=== PATIENT | male | born 1990 | race Caucasian/White ===

== ENCOUNTER 2018-01-09 11:00 | Emergency (ER) | payer BC ==
[~2018-01-09] VITALS: Ht 177.8 cm; Wt 82.6 kg
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
[2018-01-09 11:31] LABS: BASOPHILS # (AUTO) 0.1 /CMM (0.0-0.2); EOSINOPHILS % (AUTO) 0.5 % (0.0-6.0); HEMATOCRIT 50 % (39-51); HEMOGLOBIN 16.3 g/dL (13.5-17.5); LYMPHOCYTES # (AUTO) 2.2 /CMM (0.8-4.8); MEAN CORPUSCULAR HEMOGLOBIN 30 PG (26.0-33.0); MEAN CORPUSCULAR HGB CONC 32 g/dl (31.0-36.0); MEAN CORPUSCULAR VOLUME 92 fL (80-96); MONOCYTES # (AUTO) 0.4 /CMM (0.1-1.30); MONOCYTES % (AUTO) 6.8 % (2.0-12.0); NEUTROPHILS # (AUTO) 3.2 /CMM (1.8-8.9); NEUTROPHILS % (AUTO) 53.7 % (43.0-81.0); PLATELET COUNT (AUTO) 336 /CMM (150-450); RDW COEFFICIENT OF VARIATION 12.4 (11.5-15.0); RED BLOOD CELL COUNT(AUTO) 5.47 MIL/uL (4.5-6.0); WHITE BLOOD COUNT (AUTO) 5.9 K/uL (4.3-11.0)
--- NOTE | 2018-01-09 11:37 | NUR ---
LABS DRAWN & URINE COLLECTED & SENT TO LAB.
[2018-01-09 11:42] LABS: CALCIUM, SERUM 9.2 mg/dL (8.5-10.1); CARBON DIOXIDE 23 mmol/L (21-32); CHLORIDE 105 mmol/L (98-107); GLUCOSE 95 mg/dL (74-106); POTASSIUM 4.2 mmol/L (3.5-5.1); SODIUM SERUM 139 mmol/L (136-145); UREA NITROGEN, BLOOD 9 mg/dL (7-18)
[2018-01-09 11:47] LABS: ACETAMINOPHEN 0 ug/ml (10-30); ALANINE AMINOTRANSFERASE 42 U/L (12-78); ALBUMIN 3.9 g/dL (3.4-5.0); ALCOHOL, BLOOD < 3 mg/dL (0-0); ALKALINE PHOSPHATASE 90 U/L (46-116); ASPARTATE AMINOTRANSFERASE 26 U/L (15-37); BILIRUBIN,DIRECT 0.1 mg/dL (0.0-0.2); BILIRUBIN,TOTAL 0.3 mg/dL (0.2-1.0); SALICYLATE 1.5 mg/dL (2.8-20.0); TOTAL PROTEIN, SERUM 7.2 g/dL (6.4-8.2)
[2018-01-09 11:53] LABS: APPEARANCE,URINE Clear (CLEAR); BILIRUBIN,URINE Negative (NEGATIVE); BLOOD, URINE Moderate Ery/uL (NEGATIVE); COLOR,URINE Yellow (YELLOW); KETONES,URINE Negative (NEGATIVE); LEUKOCYTE ESTERASE ,URINE Negative (NEGATIVE); NITRITE, URINE Negative (NEGATIVE); PROTEIN,URINE 100 mg/dl (NEGATIVE); UGLUCOSE Negative (NEGATIVE); UROBILINOGEN,URINE 0.2 EU/dL (0.2)
[2018-01-09 11:56] LABS: BACTERIA,URINE Few /HPF (None Seen); SQUAMOUS EPITHELIAL CELL,UR Rare /HPF (None Seen)
[2018-01-09] MEDS ORDERED: LORAZEPAM INJ 2 MG/ML VIAL ONE (13:49)
[2018-01-09] MEDS: LORAZEPAM INJ 2 MG/ML VIAL IM ONE (13:54)
--- NOTE | 2018-01-09 13:55 | NUR ---
PT CONFUSED, LAUGHING. MEDICATED PER MD ORDER.
[2018-01-09 13:56] VITALS: BP 128/80
--- NOTE | 2018-01-09 15:14 | NUR ---
PT IS ACCEPTED AT [facility] PSYCH 2. 8106 BED-1. NUMBER FOR REPORT IS [id number]. PLEASE WAIT 30-45 MINUTES TO CALL AND ASK FOR MACHINE VENEER REPAIRERJACKIE MAY. ACCEPTING MD DR CAMACHO. FOR AMBULANCE: [facility] [address] [address] GO THROUGH ADMITTING ENTRANCE BY FRONT OF HOSPITAL AND WILL BE DIRECTED TO PSYCH 2.
--- NOTE | 2018-01-09 15:24 | NUR ---
CALLED [facility] FOR BLS TRANSFER TRIP#[id number] [phone] [phone]
--- NOTE | 2018-01-09 15:45 | NUR ---
CALLED [facility], SPOKE TO LALO, NUCLEAR CARDIOLOGY TECHNOLOGIST & STS THAT THE RN THAT ASSIGNED TO PT IS NOT AVAILABLE & CALL AFTER 15 MINS.
--- NOTE | 2018-01-09 16:30 | NUR ---
CALLED [facility] PSYCH UNIT TO GIVE REPORT TO J CARLOS MAY RN. SPOKE TO JACKIE MAY & STS THAT THE RN IS BUSY & WILL CALL BACK HERE. GIVEN CALL BACK # TO JACKIE MAY.
== END 2018-01-09 14:00 | disposition short-term general hospital (02) ==
LOC: ER 11:04 → EDBD 11:04 → ER 14:00
DX: F29 Unspecified psychosis not due to a substance or known physiological condition (principal)
CPT/HCPCS: 36415; 80048; 80076; 80305; 80329; 81001; 82140; 85025; 96372; 99285; A4606; G0480 ×2; J2060; Z7610; 81000-TC

== ENCOUNTER 2018-06-14 15:58 | Inpatient (IN) | payer BC, OTHER ==
[~2018-06-14] VITALS: Ht 177.8 cm; Wt 81.2 kg
--- NOTE | 2018-06-14 16:15 | NUR ---
PT BIB [employer] OFFICERS ON A 5150 HOLD FOR DTO. PATIENT ON SUICIDAL PRECAUSTIONS. KEPT COMFORTABLE. BREATHING EVENLY AND UNLABORED. WILL CONTINUE TO MONITOR ACCORDINGLY.
--- NOTE | 2018-06-14 16:25 | NUR ---
CALLED [facility] FOR MARGIETER, STATES NONE AVAILABLE WILL ATTEMPT TO FIND ONE
[2018-06-14] MEDS ORDERED: OLANZAPINE 10 MG VIAL IM ONE ×2 (16:30→16:38)
[2018-06-14] MEDS ORDERED: LORAZEPAM INJ 2 MG/ML VIAL IM ONE (16:30)
[2018-06-14] MEDS ORDERED: LORAZEPAM INJ 2 MG/ML VIAL ONE (16:38)
[2018-06-14 16:40] LABS: BASOPHILS % (AUTO) 0.5 % (0.0-2.0); EOSINOPHILS % (AUTO) 0.6 % (0.0-6.0); HEMATOCRIT 46 % (39-51); HEMOGLOBIN 15.7 g/dL (13.5-17.5); LYMPHOCYTES % (AUTO) 26.3 % (20.0-44.0); MEAN CORPUSCULAR HGB CONC 34 g/dl (31.0-36.0); MEAN CORPUSCULAR VOLUME 92 fL (80-96); MONOCYTES # (AUTO) 0.6 /CMM (0.1-1.30); NEUTROPHILS # (AUTO) 4.9 /CMM (1.8-8.9); NEUTROPHILS % (AUTO) 64.6 % (43.0-81.0); PLATELET COUNT (AUTO) 304 /CMM (150-450); RED BLOOD CELL COUNT(AUTO) 4.98 MIL/uL (4.5-6.0); WHITE BLOOD COUNT (AUTO) 7.5 K/uL (4.3-11.0)
[2018-06-14 16:50] LABS: CALCIUM, SERUM 8.8 mg/dL (8.5-10.1); CARBON DIOXIDE 29 mmol/L (21-32); CHLORIDE 103 mmol/L (98-107); CREATININE 0.8 mg/dL (0.6-1.3); GLUCOSE 104 mg/dL (74-106); POTASSIUM 3.7 mmol/L (3.5-5.1); SODIUM SERUM 139 mmol/L (136-145); UREA NITROGEN, BLOOD 11 mg/dL (7-18)
[2018-06-14 16:57] LABS: ALANINE AMINOTRANSFERASE 40 U/L (12-78); ALBUMIN 3.9 g/dL (3.4-5.0); ALCOHOL, BLOOD < 3 mg/dL (0-0); ALKALINE PHOSPHATASE 119 U/L (46-116); ASPARTATE AMINOTRANSFERASE 21 U/L (15-37); BILIRUBIN,DIRECT 0.1 mg/dL (0.0-0.2); BILIRUBIN,TOTAL 0.3 mg/dL (0.2-1.0); TOTAL PROTEIN, SERUM 7.1 g/dL (6.4-8.2)
[2018-06-14 16:58] LABS: ACETAMINOPHEN < 2 ug/ml (10-30)
[2018-06-14] MEDS ORDERED: CT SWABBABLE VALVE TRANS SET 1 EA INFUS.SET MC ONE (17:40)
[2018-06-14] MEDS ORDERED: IOHEXOL-300 100 ML VIAL IV ONE (17:40)
[2018-06-14] MEDS ORDERED: IV NS 0.9% 250 ML IV ONE (17:40)
--- NOTE | 2018-06-14 17:45 | NUR ---
PT TAKEN TO CT.
--- NOTE | 2018-06-14 18:04 | NUR ---
PT CAME BACK FROM CT.
[2018-06-14] MEDS ORDERED: CLOZ25TA4 PO (18:08)
[2018-06-14] MEDS ORDERED: LAMO200T PO (18:08)
[2018-06-14] MEDS ORDERED: QUET300T2 PO (18:08)
[2018-06-14] MEDS ORDERED: GABA-536 PO (18:08)
--- NOTE | 2018-06-14 18:13 | NUR ---
URINE COLLECTED AND SENT TO LAB.
--- NOTE | 2018-06-14 19:18 | NUR ---
report given to berny rodriguez rn for mor.
--- NOTE | 2018-06-14 20:00 | NUR ---
Patient is resting comfortably in bed with eyes closed. Easily aroused. VSS
[2018-06-14] MEDS ORDERED: GABAPENTIN 100 MG CAPSULE PO ONE (21:30)
[2018-06-14] MEDS ORDERED: GABAPENTIN 300 MG CAPSULE ONE (22:34)
[2018-06-14] MEDS ORDERED: GABAPENTIN 100 MG CAPSULE ONE (22:34)
[2018-06-14] MEDS ORDERED: CLOZAPINE 25 MG TABLET ONE (22:48)
[2018-06-14] MEDS ORDERED: LamoTRIgine 100 MG TABLET ONE (22:49)
[2018-06-14] MEDS: CLOZAPINE 25 MG TABLET PO SCH ×2 (22:54→22:56)
[2018-06-14] MEDS: LamoTRIgine 100 MG TABLET PO SCH ×2 (22:55→22:56)
--- NOTE | 2018-06-14 23:00 | NUR ---
Patient is resting comfortably in bed with eyes closed. Easily aroused. VSS
--- NOTE | 2018-06-15 00:19 | NUR ---
Patient is resting comfortably in bed with eyes closed. Easily aroused. VSS
--- NOTE | 2018-06-15 02:20 | NUR ---
Patient is resting comfortably in bed with eyes closed. Easily aroused. VSS, SITTER AT BEDSIDE.
--- NOTE | 2018-06-15 05:27 | NUR ---
Patient is resting comfortably in bed with eyes closed. Easily aroused. VSS. SITTER AT BEDSIDE
[2018-06-15] MEDS: CLOZAPINE 25 MG TABLET PO SCH ×2 (05:29→05:30)
[2018-06-15] MEDS: LamoTRIgine 100 MG TABLET PO SCH ×4 (05:29→21:14)
[2018-06-15 08:15] LABS: APPEARANCE,URINE CLEAR (CLEAR); BILIRUBIN,URINE NEGATIVE (NEGATIVE); BLOOD, URINE NEGATIVE Ery/uL (NEGATIVE); COLOR,URINE YELLOW (YELLOW); KETONES,URINE NEGATIVE (NEGATIVE); LEUKOCYTE ESTERASE ,URINE NEGATIVE (NEGATIVE); NITRITE, URINE NEGATIVE (NEGATIVE); PH,URINE 7.5 (5.0-8.0); PROTEIN,URINE NEGATIVE (NEGATIVE); UGLUCOSE NEGATIVE (NEGATIVE); UROBILINOGEN,URINE 0.2 EU/dL (0.2)
[2018-06-15] MEDS ORDERED: GABAPENTIN 100 MG CAPSULE PO SCH (10:30)
--- NOTE | 2018-06-15 11:07 | NUR ---
ACCEPTED PT AT SHIFT START. SITTING COMFORTABLY IN BED, NO COMPLAINTS AT THIS TIME. VSS. WILL CONT TO MONITOR.
[2018-06-15] MEDS: GABAPENTIN 400 MG CAPSULE PO SCH ×2 (13:00→21:00)
--- NOTE | 2018-06-15 13:07 | NUR ---
PT CALM AND RELAXED. NO COMPLAINTS AT THIS TIME. WILL CONT TO MONITOR.
--- NOTE | 2018-06-15 13:56 | NUR ---
PT REC'D GABAPENTIN AT 1030. INFORMED PHARMACY TO GIVE NEXT DOSE AT 1700
--- NOTE | 2018-06-15 14:33 | NUR ---
Face sheet and clinical information faxed to [facility] intake department
--- NOTE | 2018-06-15 16:32 | NUR ---
Left message with behavioral health intake
--- NOTE | 2018-06-15 16:39 | NUR ---
PT CALM AND RELAXED. NO COMPLAINTS AT THIS TIME. WILL CONT TO MONITOR.
--- NOTE | 2018-06-15 17:36 | NUR ---
Spoke with Maki at [facility] [phone] She states that she is not allowed to take direct admissions on the weekend and will likely take the patient tomorrow She comments that the patient's father has been a staff physican at [facility] for many years and they are prioritizing this transfer.
[2018-06-15] MEDS ORDERED: CLOZAPINE 25 MG TABLET PO SCH (18:00)
--- NOTE | 2018-06-15 18:27 | NUR ---
PT SITTING QUIETLY IN BED, NO COMPLAINTS, VSS.
--- NOTE | 2018-06-15 20:41 | NUR ---
PT SITTING QUIETLY IN BED, NO COMPLAINTS, VSS.
[2018-06-15] MEDS: QUETIAPINE FUMARATE 100 MG TABLET PO SCH (21:00)
[2018-06-15] MEDS ORDERED: LamoTRIgine 100 MG TABLET ONE (21:00)
--- NOTE | 2018-06-15 21:00 | NUR ---
SCHEDULED MEDICATIONS NOT AVAILABLE IN ER. PROVIDED BY [facility] PER NURSING FOOTBALL SCOUT. LAMICTAL AT 2100, GABAPENTIN 1700, SEROQUEL 1800 GIVEN AT 2100.
[2018-06-15] MEDS ORDERED: GABAPENTIN 400 MG CAPSULE ONE (21:01)
[2018-06-15] MEDS ORDERED: QUETIAPINE FUMARATE 100 MG TABLET ONE (21:01)
--- NOTE | 2018-06-15 22:07 | NUR ---
PT CALM AND RELAXED. NO COMPLAINTS AT THIS TIME. WILL CONT TO MONITOR.
--- NOTE | 2018-06-16 01:32 | NUR ---
MD costa to remove IV.
--- NOTE | 2018-06-16 01:33 | NUR ---
Pt is laying comfortably in bed, awake. No s/s of acute distress or sob noted. pt has no complaints at this time. Denies having any pain. Will continue to monitor pt's condition and safety.
--- NOTE | 2018-06-16 03:45 | NUR ---
pt awake resting in bed. no s/s of acute distress or sob noted. pt denies any pain or discomfort. vs stable. offered pt food but did not want anything to eat. but pt wanted water to drink. gave pt water at bedside. will continue to monitor pt.
--- NOTE | 2018-06-16 04:59 | NUR ---
found pt pacing back & forth out of bed. no s/s of acute distress or sob noted. pt denies any pain or discomfort. but does not want to go back into bed. will continue to monitor pt's condition and safety closely. vs stable.
--- NOTE | 2018-06-16 05:58 | NUR ---
monitoring pt at bedside. pt is pacing back & forth in room, but is cooperative. Does not want to sit down or lay down in the bed any longer. Pt wanted cranberry juice. gave pt cranberry juice at bedside. No s/s of acute distress or sob noted. VS stable. will continue to monitor pt's condition and safety.
[2018-06-16] MEDS ORDERED: LORAZEPAM 1 MG TABLET ONE (06:14)
--- NOTE | 2018-06-16 06:17 | NUR ---
administered ativan 2mg po per md order
[2018-06-16] MEDS ORDERED: LORAZEPAM 1 MG TABLET PO ONE (06:30)
--- NOTE | 2018-06-16 06:46 | NUR ---
gave patient water to drink. no s/s of acute distress or sob noted. pt is continuing to pace back & forth in room, mumbling and laughing to self. pt is responsive and verbal and follows commands when asked. will continue to monitor pt closely at bedside
--- NOTE | 2018-06-16 07:12 | NUR ---
Endorsed to JACKIE Denise for pt's mor. pt is in room, calm, awake & alert. No s/s of acute distress or sob noted. Respirations even and unlabored. VS stable.
--- NOTE | 2018-06-16 07:21 | NUR ---
called kitchen to bring up breakfast tray for ptBrenton SPRINGER for food.
--- NOTE | 2018-06-16 07:25 | NUR ---
REC'D REPORT FROM JACKIE HERNANDEZ FOR TONY
--- NOTE | 2018-06-16 08:44 | NUR ---
DASHA GIFFORD CALLED TO F/U ON STATUS OF PT, STATES SHE WILL CALL [facility]
[2018-06-16] MEDS ORDERED: GABAPENTIN 100 MG CAPSULE ONE ×2 (09:06→13:41)
[2018-06-16] MEDS ORDERED: GABAPENTIN 300 MG CAPSULE ONE ×2 (09:06→13:41)
[2018-06-16] MEDS: GABAPENTIN 400 MG CAPSULE PO SCH ×3 (09:29→17:44)
[2018-06-16] MEDS: LamoTRIgine 100 MG TABLET PO SCH ×2 (09:29→21:46)
--- NOTE | 2018-06-16 09:45 | NUR ---
DASHA GIFFORD AND SEAN, PURE PAK MACHINE OPERATOR, AT BEDSIDE
--- NOTE | 2018-06-16 10:13 | NUR ---
SINTIA (INTAKE)Sean NUÑEZ [phone] EXT [phone]
--- NOTE | 2018-06-16 11:42 | NUR ---
Called Fatemeh Flores ([facility]) and left a voicemail to call back for follow up.
--- NOTE | 2018-06-16 14:32 | NUR ---
PT IN ROOM 4 WITH SITTER, PT CALM AND COOPERATIVE WITH STAFF. PT COMPLIANT WITH MEDICATIONS, NO ADVERSE REACTION NOTED
--- NOTE | 2018-06-16 14:59 | NUR ---
[facility] INTAKE KATY---- DAD [phone]
--- NOTE | 2018-06-16 15:16 | NUR ---
[facility] HAS BED AVAILABLE, CALL INTAKE AT [phone] BRITANY FROM [facility]; [phone]
--- NOTE | 2018-06-16 15:17 | NUR ---
[facility] INTAKE FAX NUMBER - [phone]; PLEASE FAX PSYCHIATRIST NOTE, LYNN, RENE, RN NOTES, AND H&P TO [facility]. PER KATY, THEY DO NOT THINK THEY WILL HAVE A BED AVAILABLE TODAY BUT ONE MAY OPEN UP TOMORROW.
--- NOTE | 2018-06-16 15:57 | NUR ---
wiliam ojeda [phone] [facility] [phone] rios [phone] [place] [phone] jabari [facility] [phone]
--- NOTE | 2018-06-16 15:59 | NUR ---
CALLED [facility] FOR POSSIBLE PLACEMENT, PER INTAKE THEY DONT TAKE PT'S WITH DD/AUTISM; GAVE A FEW HOSPITAL RESOURCES THAT MIGHT
[2018-06-16] MEDS: QUETIAPINE FUMARATE 100 MG TABLET PO SCH (17:44)
--- NOTE | 2018-06-16 18:15 | NUR ---
SPOKE TO PT'S FATHER, DR. LIM REGARDING PT'S DISPOSITION REPORTED PT RESTING AT THIS TIME, PER DR LIM HE SPOKE TO [facility] REGARDING POSSIBLE ADMISSION FOR HIS SON, [facility] WILL HAVE AN AVAILABLE BED FOR [place] AM, FOR STAFF TO F/U, AND PER HIM, DO NOT DISCHARGE PT WITHOUT HIS CONSENT.
--- NOTE | 2018-06-16 19:10 | NUR ---
PT WITH SITTER AT BEDSIDE, ORDERED DINNER TRAY FOR PT, PT RESTING EYES CLOSED, EASILY AROUSED, VSS
--- NOTE | 2018-06-16 21:46 | NUR ---
PT WOKE UP TO TAKE NIGHT MEDS; COOPERATIVE WITH CARE, SITTER AT BEDSIDE, VSS
--- NOTE | 2018-06-16 22:47 | NUR ---
REPORT REC'D FROM JACKIE TURNER FOR TONY. PT'S IN PT MEDICATION IS AT THE NURSE'S STATION WITH THE CHARGE NURSE. SITTER IS AT THE BEDSIDE.
--- NOTE | 2018-06-16 23:35 | NUR ---
PT APPEARS TO BE SLEEPING SOUNDLY WITH NO S/S OF PAIN OR DISTRESS. WILL CONTINUE TO MONITOR THE PT.
--- NOTE | 2018-06-17 01:14 | NUR ---
PT IS AWAKE AND APPEARS TO BE RESTING COMFORTABLY WITH SITTER AT THE BEDSIDE.
--- NOTE | 2018-06-17 02:20 | NUR ---
PT AMBULATED TO THE BATHROOM WITH A STEADY GAIT. RUI ADAMES/MARÍA IS WITH THE PT.
--- NOTE | 2018-06-17 02:30 | NUR ---
PT RETURNED TO ER #4. SITTER IS WITH THE PT.
--- NOTE | 2018-06-17 02:57 | NUR ---
PT AMBULATED TO THE BATHROOM WITH A STEADY GAIT. SITTER FOLLOWED PT TO THE BATHROOM.
--- NOTE | 2018-06-17 02:58 | NUR ---
PT RETURNED TO ER #4.
--- NOTE | 2018-06-17 03:04 | NUR ---
PT REC'D JELLO AND PUDDING. PT IS TOLERATING PO WELL.
--- NOTE | 2018-06-17 03:07 | NUR ---
PT ASKED FOR A CUP OF WATER. PT REC'D WATER AND TOLERATED PO WELL.
--- NOTE | 2018-06-17 03:14 | NUR ---
PT AMBULATED TO THE BATHROOM AND CAME RIGHT BACK OUT AND WENT BACK TO ER 4. RUI ADAMES/MARÍA WAS WITH HIM.
--- NOTE | 2018-06-17 04:30 | NUR ---
PT APPEARS TO BE PACING IN HIS ROOM. MD IS AWARE. SITTER IS AT THE BEDSIDE.
--- NOTE | 2018-06-17 06:46 | NUR ---
PT APPEARS TO BE PACING IN ER 4 AND GIGGLING. SITTER IS AT THE BEDSIDE.
--- NOTE | 2018-06-17 07:04 | NUR ---
PT REC'D A BREAKFAST TRAY.
--- NOTE | 2018-06-17 07:16 | NUR ---
PT IS AMBULATING AROUND ER 4 AND EATING HIS BREAKFAST.
--- NOTE | 2018-06-17 07:34 | NUR ---
REPORT GIVEN TO JACKIE ONEILL FOR TONY.
--- NOTE | 2018-06-17 08:28 | NUR ---
SPOKE TO PT'S FATHER. STATES WILL SEND SOMEONE TO SIT FOR PATIENT AT AROUND 0900.
[2018-06-17] MEDS: LamoTRIgine 100 MG TABLET PO SCH (09:11)
[2018-06-17] MEDS: GABAPENTIN 400 MG CAPSULE PO SCH ×2 (09:12→13:53)
--- NOTE | 2018-06-17 09:18 | NUR ---
PT MEDICATED ORDERED. SITTER AT BEDSIDE. VSS. WILL CONTINUE TO MONITOR.
--- NOTE | 2018-06-17 09:37 | NUR ---
BEHAVIORAL MANAGER SPEECH NOW AT BEDSIDE.
--- NOTE | 2018-06-17 09:42 | NUR ---
PT NOW IS NOTED TO BE PACING, ERMD MADE AWARE. AWAITING NEW ORDER.
--- NOTE | 2018-06-17 09:43 | NUR ---
DASHA CHRISTENSEN, IS TALKING W/ PT'S FATHER.
[2018-06-17] MEDS ORDERED: OLANZAPINE 10 MG VIAL IM ONE ×2 (09:48→10:00)
--- NOTE | 2018-06-17 11:06 | NUR ---
Disposition Note: Pt.'s father who is also his conservator is refusing to take him home. He faxed conservatorship papers which indicate he is conservator with ZE number [id number]. Father says he is " waiting for a bed at [facility]." This clinician explained it can take months for this. Merged With [facility] per Dr Seaman has no beds. Irma at [facility] [phone] states they have no beds. [facility] [phone] are not contracted with [facility]. Spoke with [facility] [phone] and was advised [facility] does their intake. Called [place] intake for [facility] [phone] and spoke with Karime. Will fax information to [phone]. Bonnie CAMARGO is also attempting placement.
--- NOTE | 2018-06-17 11:13 | NUR ---
REPORT GIVEN TO WILLIAM MEJIA FOR TONY. AWAITING TRANSFER TO FLOOR.
--- NOTE | 2018-06-17 11:42 | NUR ---
STACY contacted [facility] and spoke to Ladonna in intake who informed STACY to fax clinicals to . Ladonna informed STACY they will review the packet and follow up with STACY. STACY faxed clinical packet along with conservatorship documentation to Ladonna in intake at . STACY updated line construction supervisor Fatemeh Flores as well.
--- NOTE | 2018-06-17 11:47 | NUR ---
LPS Note: Pt. was placed on [employer] 5150 which expires at 1600 today. Father is LPS conservator and faxed current LPS conservatorship document which is current and dated March 2018. Pt's legal status will now change to LPS CONSERVED. No 5250 is needed. This certified social workers in health care left a voicemail for father, Maxi Nielsen ([phone]) to sign detain and treat paperwork for Nathen Pablo before 5150 expires. This was also discussed with Cheo MEJIA assigned to patient. Dr Seaman will follow pt on the medical floor. Advised Dr Seaman that per conservator pt. is on 75 mg Clozaril. Father states he told ED staff that pt. was on this. Father needs to work on placement other than acute psychiatric facilities as final disposition is needed too. Insurance Authorization: [email or web address] [id number] authorized 5 stays retroactive from 06/14/17 for [facility] overflow with ref. no: [id number]. Assigned animal care giver will be Rola [phone]. Next review needed on
[2018-06-17 12:00] VITALS: BP 130/85
--- NOTE | 2018-06-17 12:02 | NUR ---
Corrected Insurance Note: Vicente Brambila gave retroactive authorization starting 06/14/18 through 06/18/18. Review is due 06/18/18. manager assembly is Rola [phone]. Authorization no given was [id number].
--- NOTE | 2018-06-17 12:18 | NUR ---
SENIOR C SOFTWARE ENGINEER NOTES PT WAS BROUGHT UP TO THE FLOOR AT 1130 THIS MORNING. PT WAS NOTED TO BE PACING IN THE ROOM, BEHAVIORAL SCHOOL PSYCHOLOGIST AND SITTER PRESENT AT THE BEDSIDE. [facility] WAS CONTACTED REGARDING THE ADMISSION PROCESS BUT THEY SAID THE PATIENT SHOULD NOT HAVE BEEN ADMITTED UNDER GPS OVERFLOW. DASHA WAS TRY TO BE CONTACTED AT THIS TIME BUT ACCORDING TO THE MINERALOGY PROFESSOR SHE JUST LEFT FOR [facility]. WILL TRY TO CONTACT AGAIN LATER. WILL PERFORM PHYSICAL ASSESMENT AND MONITOR ACCORDINGLY
--- NOTE | 2018-06-17 12:46 | NUR ---
STACY received a call back from Ladonna in intake from [facility] informing SW they will not be able to accept pt. due to the typed of conservatorship. She informed SW that pt. will required watermelon inspector placement and their facility is only short term.
--- NOTE | 2018-06-17 14:00 | NUR ---
RN NOTE PT NOTED TO BE PACING BACK AND FORTH IN THE ROOM, LAUGHS ON OCCASION AND IS ALWAYS SAYING HI. HE WAS COOPERATIVE WHEN MEDS WERE GIVEN. LUNCH TRAY WAS PROVIDED WHICH HE ATE MOST OF. BEHAVIORAL TILTROTOR CREW CHIEF AND FATHER PRESENT AT THE BEDSIDE. FATHER FANNY LIM, SIGNED CONSERVATORSHIP PAPERWORK AND ACCORDING TO HIM HE HAS FAXED OVER THE CONSERVATORSHIP PAPERWORK OVER TO THE /CM
[2018-06-17 16:00] VITALS: BP_SYST 126; BP_SYST 130; BP_DIAS 78; BP_DIAS 85
--- NOTE | 2018-06-17 16:01 | NUR ---
STACY received a call from Miquel at [facility] requesting for updated insurance information. STACY faxed him the updated face sheet with correct insurance information.
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
--- NOTE | 2018-06-17 18:46 | NUR ---
RN CLOSING NOTES PT IS NOW IN BED RESTING AFTER PACING BACK AND FORTH IN HIS ROOM ALL DAY. SITTER IS PRESENT AT THE BEDSIDE. HE IS AMBULATORY, A/O X2, HE APPEARS TO BE PARANOID AND KEEPS SAYING HI TO EVERYONE AND LAUGHING ON OCCASION. NO IV IN PLACE. AWAITING FOR POSSIBLE PLACEMENT TO [facility]. SAFETY PRECAUTIONS IN PLACE, CALL LIGHT WITHIN REACH. WILL ENDORSE TO ONCOMING PREPRESS TECHNICIAN NURSE FOR CONTINUITY OF CARE
--- NOTE | 2018-06-17 19:08 | NUR ---
RN NOTE JUST RECEIVED CALL FROM FELA FROM [facility] REGARDING THE PATIENT ACCEPTANCE TO THE FACILITY. THE ATTENDING DOC WILL BE DOCTOR ANSARI, HE WILL BE GOING TO UNIT 1 [facility] BED 119 A. HE STATED THE BED WILL NOT BE AVAILABLE UNTIL AFTER 11.
--- NOTE | 2018-06-17 19:44 | NUR ---
RN MS OPENING NOTES RECEIVED PATIENT PACING IN ROOM SAYING HI AND LAUGHING. ALERT AND ORIENTED X1-2, VERBALLY RESPONSIVE. BREATHING EVEN AND UNLABORED. NO SOB NOTED. TOLERATING ROOM AIR. NO IV. NO S/S OF PAIN OR DISCOMFORT. NO FACIAL GRIMACING. SKIN DRY AND WARM TO TOUCH. AFEBRILE. SITTER AT BEDSIDE. ALL OTHER NEEDS ATTENDED TO. CALL LIGHT WITHIN REACH. WILL CONTINUE TO MONITOR.
[2018-06-17 20:00] VITALS: BP 142/86
[2018-06-17] MEDS ORDERED: CLOZAPINE 25 MG TABLET PO SCH (22:00)
--- NOTE | 2018-06-17 22:55 | NUR ---
FUND DEVELOPMENT MANAGER NOTES PATIENT DISCHARGED VIA GURNEY IN STABLE CONDITION. PATIENT IS ALERT AND ORIENTED X1-2. CONTINUOUSLY PACING IN THE ROOM, SAYING HI, AND LAUGHING. COOPERATIVE WHEN NEED TO BE. BREATHING EVEN AND UNLABORED. NO SOB NOTED. TOLERATING ROOM AIR. NO IV. NO COMPLAINTS OF PAIN OR DISCOMFORT. NO FACIAL GRIMACING. SKIN DRY AND WARM TO TOUCH. AFEBRILE. PATIENT UNABLE TO SIGN DISCHARGE PAPERWORKS. 1 RN [address] FOREMAN SIGNED DISCHARGED PAPER WORKS. SKIN CHECK RENDERED WITH NO SKIN ISSUES NOTED. BELONGINGS ACCOUNTED FOR. GAVE REPORT TO JACKIE CALLAHAN FROM [facility]. PATIENT WILL BE GOING TO UNIT 1 [facility] BED 119-A. FATHER/CONSERVATOR, SADIQ LIM, MADE AWARE OF TRANSFER.
[2018-06-18] MEDS ORDERED: OLANZAPINE 10 MG TABLET PO SCH (09:00)
--- NOTE | 2018-06-19 14:33 | NUR ---
UR NOTE: STACY left clinical review with Rola with [facility] Dept. [phone] EXT [phone] for review. Addendum: 06/19/18 at 1436 by FIOR KUMAR STACY left verbal clinical review via voicemail
--- NOTE | 2018-06-19 15:17 | NUR ---
UR NOTE: STACY received a call from Rola with [facility] Dept. [phone] EXT [phone] requesting clarification on discharge status. STACY informed her that pt was discharged on 06/17/18 to [facility]. Rola stated that case will be closed and she has authorized his stay at [facility] from 06/14/18-06/17/18.
== END 2018-06-17 22:55 | DRG 885 ==
LOC: ER 16:00 → GPSOV 06-17 10:46
PROVIDERS: ADMIT Psychiatry & Neurology Psychiatry; ATTEND Psychiatry & Neurology Psychiatry
DX: F20.0 Paranoid schizophrenia (principal); F84.0 Autistic disorder
CPT/HCPCS: 36415; 70491-TC; 80048-TC; 80076-TC; 80305; 81000-TC; 82140-TC; 85025-TC; 87081-TC; G0480; J2060; J3490; J7050; Q9967